=== PATIENT | male | born 1955 | race Caucasian/White ===

== ENCOUNTER 2017-09-20 09:38 | Emergency (ER) | payer OTHER ==
[~2017-09-20] VITALS: Ht 162.6 cm; Wt 74.8 kg
[~2017-09-20 09:38] MED LIST: Augmentin 875-1 EACH PO; Bactrim Ds Tab1 EACH PO; CEPH500 PO; DIPH25 PO; FAMO40 PO; Keflex500 MG PO; MINO100 PO; MUPI2TC TOP; Norco 5-325 Ta1 EACH PO; SULTRIDS PO
[2017-09-20] MEDS ORDERED: Naprosyn500 MG PO (10:10)
[2017-09-20] MEDS ORDERED: Cleocin HCl300 MG PO (10:10)
== END 2017-09-20 10:25 | disposition home or self-care (01) ==
LOC: ER 09:38
DX: K08.89 Other specified disorders of teeth and supporting structures (principal)
CPT/HCPCS: 99283

== ENCOUNTER 2017-10-02 11:27 | Emergency (ER) | payer OTHER ==
[~2017-10-02] VITALS: Ht 162.6 cm; Wt 74.8 kg
[~2017-10-02 11:27] MED LIST changes: +Cleocin HCl300 MG PO; +Naprosyn500 MG PO
[2017-10-02] MEDS ORDERED: AMOX250CH PO (11:55)
== END 2017-10-02 11:56 | disposition home or self-care (01) ==
LOC: ER 11:27
DX: S50.362A Insect bite (nonvenomous) of left elbow, initial encounter (principal); W57.XXXA Bitten or stung by nonvenomous insect and other nonvenomous arthropods, initial encounter; Z79.2 Long term (current) use of antibiotics
CPT/HCPCS: 99281

== ENCOUNTER 2018-01-28 22:34 | Emergency (ER) | payer OTHER ==
[~2018-01-28] VITALS: Ht 162.6 cm; Wt 74.8 kg
[~2018-01-28 22:34] MED LIST changes: +AMOX250CH PO
[2018-01-29] MEDS ORDERED: CEPH500 PO (02:46)
[2018-01-29] MEDS ORDERED: HYDR1TAB94 PO (02:46)
== END 2018-01-29 03:12 | disposition home or self-care (01) ==
LOC: ER 22:34
DX: L03.115 Cellulitis of right lower limb (principal)
CPT/HCPCS: 99283

== ENCOUNTER 2018-02-01 14:46 | Emergency (ER) | payer OTHER ==
[~2018-02-01] VITALS: Ht 162.6 cm; Wt 74.8 kg
[~2018-02-01 14:46] MED LIST changes: +HYDR1TAB94 PO
[2018-02-01 15:50] LABS: BASOPHILS ABSOLUTE AUTO 0.02 K/mm3 (0.00-0.23); BASOPHILS PERCENT AUTO 0 % (0-2); EOSINOPHILS ABSOLUTE AUTO 0.12 K/mm3 (0.00-0.68); EOSINOPHILS PERCENT AUTO 2 % (0-6); Hematocrit 37.4 % (37.0-53.0); IMMATURE GRAN ABSOLUTE AUTO 0.03 K/mm3 (0.00-0.10); IMMATURE GRAN PERCENT AUTO 1 % (0-1); LYMPHOCYTES ABSOLUTE AUTO 1.32 K/mm3 (0.84-5.20); LYMPHOCYTES PERCENT AUTO 20 % (21-46); MONOCYTES ABSOLUTE AUTO 0.69 K/mm3 (0.16-1.47); MONOCYTES PERCENT AUTO 10 % (4-13); Mean Corpuscular HGB 27.5 pg (26.0-34.0); Mean Corpuscular HGB Conc 32.1 g/dL (31.5-36.5); Mean Corpuscular Volume 86 fL (80-100); NEUTROPHILS ABSOLUTE AUTO 4.43 K/mm3 (1.96-9.15); NEUTROPHILS PERCENT AUTO 67 % (41-73); Platelet Count 244 K/mm3 (150-400); RDW Coefficient Variation 12.7 % (11.7-14.2); RDW Standard Deviation 39.2 fL (35.1-46.3); Red Blood Cell Count 4.37 M/mm3 (4.30-5.90); White Blood Cell Count 6.61 K/mm3 (4.00-11.30)
[2018-02-01 16:11] LABS: Alanine Aminotransfer (ALT/SGP 16 U/L (12-78); Albumin, Blood 2.8 g/dL (3.4-5.0); Albumin/Globulin Ratio 0.6 (0.8-1.8); Alk Phos 77 U/L (50-136); Anion Gap 7 mmol/L (6-16); Aspartate Aminotrans (AST/SGOT 15 U/L (12-37); Bilirubin, Total 0.2 mg/dL (0.1-1.0); Blood Urea Nitrogen 13 mg/dL (8-24); Bun/Creatinine Ratio 12.6 (12.0-20.0); CO2, Blood 29 mmol/L (21-32); Calcium, Blood 8.6 mg/dL (8.5-10.1); Chloride, Blood 101 mmol/L (98-108); Creatinine, Blood 1.03 mg/dL (0.60-1.20); Globulin, Blood 4.9 g/dL (2.2-4.0); Glomerular Filtration Rate >60 (60-); Glucose, Blood 124 mg/dL (70-99); Potassium, Blood 3.9 mmol/L (3.5-5.5); Sodium, Blood 137 mmol/L (136-145); Total Protein, Blood 7.7 g/dL (6.4-8.2)
[2018-02-01] MEDS ORDERED: Bactrim Ds Tab1 EACH PO (16:17)
== END 2018-02-01 16:27 | disposition home or self-care (01) ==
LOC: ER 14:46
PROVIDERS: Physician Assistant
DX: L03.115 Cellulitis of right lower limb (principal)
CPT/HCPCS: 80053; 85025; 96365; 99283

== ENCOUNTER 2018-10-26 00:06 | Observation (INO) | payer OTHER ==
[~2018-10-26] VITALS: Ht 162.6 cm; Wt 76.8 kg
[2018-10-26 00:25] LABS: Calcium, Ionized (POC) 1.18 mmol/L (1.10-1.46); Chloride (POC) 97 mmol/L (98-108); Creatinine (POC) 1.4 mg/dL (0.8-1.3); Glucose (ISTAT POC) 131 mg/dL (70-99); Hemoglobin (POC) 9.5 g/dL (13.5-17.5); Potassium (POC) 4.1 mmol/L (3.5-5.5); Sodium (POC) 139 mmol/L (135-148); Total CO2 (POC) 27 mmol/L (21-32)
[2018-10-26 00:37] LABS: BASOPHILS ABSOLUTE AUTO 0.05 K/mm3 (0.00-0.23); BASOPHILS PERCENT AUTO 1 % (0-2); EOSINOPHILS ABSOLUTE AUTO 0.05 K/mm3 (0.00-0.68); EOSINOPHILS PERCENT AUTO 1 % (0-6); Hemoglobin 9.7 g/dL (13.5-17.5); IMMATURE GRAN ABSOLUTE AUTO 0.05 K/mm3 (0.00-0.10); IMMATURE GRAN PERCENT AUTO 1 % (0-1); LYMPHOCYTES ABSOLUTE AUTO 4.05 K/mm3 (0.84-5.20); LYMPHOCYTES PERCENT AUTO 40 % (21-46); MONOCYTES ABSOLUTE AUTO 1.04 K/mm3 (0.16-1.47); MONOCYTES PERCENT AUTO 10 % (4-13); Mean Corpuscular HGB Conc 31.3 g/dL (31.5-36.5); Mean Platelet Volume 8.9 fL (9.1-12.4); NEUTROPHILS ABSOLUTE AUTO 4.98 K/mm3 (1.96-9.15); NEUTROPHILS PERCENT AUTO 49 % (41-73); Platelet Count 247 K/mm3 (150-400); RDW Coefficient Variation 13.6 % (11.7-14.2); RDW Standard Deviation 44.1 fL (35.1-46.3); Red Blood Cell Count 3.47 M/mm3 (4.30-5.90); White Blood Cell Count 10.22 K/mm3 (4.00-11.30)
[2018-10-26 00:38] LABS: Mean Corpuscular Volume 89 fL (80-100)
[2018-10-26 00:56] LABS: Albumin, Blood 2.9 g/dL (3.4-5.0); Albumin/Globulin Ratio 0.8 (0.8-1.8); Bilirubin, Total 0.3 mg/dL (0.1-1.0); Bun/Creatinine Ratio 48.1 (12.0-20.0); Calcium, Blood 8.7 mg/dL (8.5-10.1); Creatinine, Blood 1.33 mg/dL (0.60-1.20); Globulin, Blood 3.5 g/dL (2.2-4.0); Potassium, Blood 4.2 mmol/L (3.5-5.5); Total Protein, Blood 6.4 g/dL (6.4-8.2)
[2018-10-26 01:11] LABS: International Normalized Ratio 1.03; Prothrombin Time Results 10.9 Sec (9.7-11.5)
[2018-10-26] MEDS ORDERED: ASPI81CH PO (01:28)
[2018-10-26] MEDS ORDERED: Omeprazole20 M1 PO (01:28)
[2018-10-26 01:40] LABS: Percent Saturation 27.5 % (20.0-50.0)
[2018-10-26 02:04] LABS: Base Excess Venous 1.6 mmol/L; Bicarbonate Venous 25.3 mmol/L (24.0-30.0); PCO2 Venous 48.6 mmHg (38-42); PO2 Venous 53.3 mmHg (38-42); pH Blood Venous 7.36 (7.34-7.37)
[2018-10-26 03:35] LABS: U Amphetamine Screen DETECTED; U Barbituate Screen Not Detected; U Benzodiazapine Screen Not Detected; U Buprenorphine Screen Not Detected; U Cannabinoids Screen Not Detected; U Cocaine Screen Not Detected; U Methadone Screen Not Detected; U Methamphetamine Screen DETECTED; U Opiates Screen Not Detected; U Oxycodone Screen Not Detected; U Phencyclidine Screen Not Detected; U Propoxyphene Screen Not Detected
[2018-10-26 05:13] LABS: BASOPHILS ABSOLUTE AUTO 0.04 K/mm3 (0.00-0.23); BASOPHILS PERCENT AUTO 1 % (0-2); EOSINOPHILS ABSOLUTE AUTO 0.01 K/mm3 (0.00-0.68); EOSINOPHILS PERCENT AUTO 0 % (0-6); Hematocrit 32.2 % (37.0-53.0); Hemoglobin 10.3 g/dL (13.5-17.5); IMMATURE GRAN ABSOLUTE AUTO 0.02 K/mm3 (0.00-0.10); IMMATURE GRAN PERCENT AUTO 0 % (0-1); LYMPHOCYTES ABSOLUTE AUTO 1.42 K/mm3 (0.84-5.20); LYMPHOCYTES PERCENT AUTO 18 % (21-46); MONOCYTES ABSOLUTE AUTO 0.56 K/mm3 (0.16-1.47); MONOCYTES PERCENT AUTO 7 % (4-13); Mean Corpuscular HGB 28.7 pg (26.0-34.0); Mean Corpuscular Volume 90 fL (80-100); Mean Platelet Volume 8.7 fL (9.1-12.4); NEUTROPHILS ABSOLUTE AUTO 5.99 K/mm3 (1.96-9.15); NEUTROPHILS PERCENT AUTO 75 % (41-73); Platelet Count 172 K/mm3 (150-400); RDW Coefficient Variation 13.5 % (11.7-14.2); RDW Standard Deviation 44.7 fL (35.1-46.3); Red Blood Cell Count 3.59 M/mm3 (4.30-5.90); White Blood Cell Count 8.04 K/mm3 (4.00-11.30)
--- NOTE | 2018-10-26 07:39 | NUR ---
[id number]: ARRIVED FROM ED VIA GUERNEY, ALERT, ORIENT, ABLE TO MOVE SELF ACROSS TO BED. MONITOR SR, BP PARAMETERS STABLE, IVs PATENT, RBC #1, NS FLUID BOLUS, PROTONIX CON'T GTT INFUSING. DENIES PAIN, NAUSEA, SOB. ADMISS HX COMPLETE, PT DOZING. ABNORMAL LACTIC ACID REPORTED TO DR MOTA, ORDERS RECIEVED. CRYSTALOID MAINT FLUID, SECOND RBC GIVEN. VOIDED QS, NO BM OR EMESIS. VSS, PINK, WARM, PLT TRANSFUSION DEFERRED/ DR MOTA. H/H, LACTIC ACID IMPROVED IN AM. ROCEPHIN IVPB GIVEN OFF SCHED AFTER ASCERTAINED NOT GIVEN IN ED, OBTAINED FROM PHARMACY.
--- NOTE | 2018-10-26 07:45 | NUR ---
RECEIVED REPORT AND ASSUMED CARE OF PATIENT. HE IS RESTING AND STATES, "I HAVEN'T SLEPT THIS WELL IN A LONG TIME." HE IS ON 4 L O2 VIA NC, O2 SAT ARE 100%. DECREASED O2 TO 2LPM AND WILL REASSESS. PT DOES NOT COMPLAIN OF PAIN AT THIS TIME. SOME TENDERNESS IN UPPER QUADS OF ABDOMEN. PT VOIDS IN URINAL AND IS INDEPENDENT AT BASELINE.
--- NOTE | 2018-10-26 09:00 | NUR ---
DR KIM IN TO SEE PATIENT, NO CHANGES AT THIS TIME.
--- NOTE | 2018-10-26 09:51 | NUR ---
REASSESSED O2 SAT, CONTINUES AT 100%, TURNED O2 OFF AND PT STATES HE IS BREATHING FINE.
--- NOTE | 2018-10-26 09:52 | NUR ---
DR. DIAZ IN TO SEE PATIENT, PLAN TO SCOPE AT 1000.
--- NOTE | 2018-10-26 10:16 | NUR ---
UPPER ENDOSCOPY DR. DIAZ AND DAY SURGERY CREW AT BEDSIDE TO PERFORM EGD. DAY SURGERY RN PROVIDED ANESTHESIA WITH PROPOFOL. SEE DR. DIAZ'S NOTE FOR FINDINGS.
--- NOTE | 2018-10-26 10:59 | NUR ---
10/26/18 1059 Atif Huntley PATIENT DETERMINED TO BE ASA APPROPRIATE FOR PROPOFOL SEDATION PRIOR TO START OF PROCEDURE BY DR. Giovanny Gandhi Placed3-LEAD EKG REVIEWED WITH PHYSICIAN PRIOR TO START OF PROCEDURE.History, Chart, Medications and Allergies reviewed before start of procedure.MONITOR INTACT WITH CONTINUOUS PULSE OXIMETRY AND INTERMITTENT BP.O2 VIA N/C INTACT THROUGHOUT SEDATION/PROCEDURE. PROCEDURE DONE IN ICU 4
--- NOTE | 2018-10-26 14:14 | NUR ---
DR DIAZ SPOKE WITH PATIENT ABOUT THE SCOPE RESULTS. HE RECOMMENDED THAT HE SEE DR. OCHOA WITHIN A MONTH OF TAKING DAILY MEDICATIONS TO CONTROL THE ACID REFLUX. WENT OVER THE PHOTOS OF THE SCOPE AND EXPLAINED THE ULCERATIONS. PT STATED HE UNDERSTOOD INSTRUCTIONS.
--- NOTE | 2018-10-26 19:18 | NUR ---
PT WAS VERY SLEEPY AND RESTFUL THROUGHOUT THE SHIFT. PT O2SAT >90% ON ROOM AIR. VITALS ARE STABLE. PT HAD SCOPE TODAY AND MET WITH DR DIAZ THIS AFTERNOON. PT DIET HAS BEEN ADVANCED, HE IS USING URINAL AND IS SBA AT THIS TIME. WILL CONTINUE TO MONITOR AND GIVE REPORT TO AALIYAH RN.
[2018-10-27 03:46] LABS: BASOPHILS ABSOLUTE AUTO 0.03 K/mm3 (0.00-0.23); BASOPHILS PERCENT AUTO 0 % (0-2); EOSINOPHILS ABSOLUTE AUTO 0.23 K/mm3 (0.00-0.68); EOSINOPHILS PERCENT AUTO 2 % (0-6); Hematocrit 30.7 % (37.0-53.0); Hemoglobin 10.2 g/dL (13.5-17.5); IMMATURE GRAN ABSOLUTE AUTO 0.04 K/mm3 (0.00-0.10); IMMATURE GRAN PERCENT AUTO 0 % (0-1); LYMPHOCYTES ABSOLUTE AUTO 2.63 K/mm3 (0.84-5.20); LYMPHOCYTES PERCENT AUTO 28 % (21-46); MONOCYTES ABSOLUTE AUTO 0.77 K/mm3 (0.16-1.47); MONOCYTES PERCENT AUTO 8 % (4-13); Mean Corpuscular HGB 28.6 pg (26.0-34.0); Mean Corpuscular HGB Conc 33.2 g/dL (31.5-36.5); Mean Platelet Volume 8.6 fL (9.1-12.4); NEUTROPHILS ABSOLUTE AUTO 5.75 K/mm3 (1.96-9.15); NEUTROPHILS PERCENT AUTO 61 % (41-73); Platelet Count 179 K/mm3 (150-400); RDW Coefficient Variation 14.1 % (11.7-14.2); Red Blood Cell Count 3.57 M/mm3 (4.30-5.90); White Blood Cell Count 9.45 K/mm3 (4.00-11.30)
[2018-10-27 03:49] LABS: Mean Corpuscular Volume 86 fL (80-100)
[2018-10-27 04:07] LABS: Alanine Aminotransfer (ALT/SGP 15 U/L (12-78); Albumin, Blood 2.7 g/dL (3.4-5.0); Albumin/Globulin Ratio 0.9 (0.8-1.8); Alk Phos 48 U/L (50-136); Anion Gap 5 mmol/L (6-16); Aspartate Aminotrans (AST/SGOT 19 U/L (12-37); Bilirubin, Total 0.3 mg/dL (0.1-1.0); Blood Urea Nitrogen 24 mg/dL (8-24); Bun/Creatinine Ratio 25.3 (12.0-20.0); CO2, Blood 27 mmol/L (21-32); Chloride, Blood 110 mmol/L (98-108); Creatinine, Blood 0.95 mg/dL (0.60-1.20); Globulin, Blood 3.1 g/dL (2.2-4.0); Glomerular Filtration Rate >60 (60-); Glucose, Blood 99 mg/dL (70-99); Percent Saturation 24.6 % (20.0-50.0); Potassium, Blood 4.1 mmol/L (3.5-5.5); Sodium, Blood 142 mmol/L (136-145); Total Protein, Blood 5.8 g/dL (6.4-8.2)
--- NOTE | 2018-10-27 08:00 | NUR ---
ATE BREAKFAST AND NOW WANTS TO SLEEP A LITTLE LONGER. NO COMPS AND HOPES TO GO HOME TODAY. LUNGS CLEAR BRE. BACK TO SLEEP ALMOST IMMEDIATELY.
--- NOTE | 2018-10-27 08:18 | NUR ---
[id number]: RESTING COMFORTABLY, SLEEPING AT INTEVALS. DENIES EPIGASTRIC OR ABDOMINAL DISTRESS, DANGLING, UP TO BSC W/OUT DIZZINESS. NO STOOLS OR EMESIS. UNEVENTFULL NIGHT, SLEPT AT INTERVALS, TOAST & JUICE IN A.M.
[2018-10-27] MEDS ORDERED: OMEPRAZOLE20 MG (09:29)
[2018-10-27] MEDS ORDERED: ABAT250V (09:29)
[2018-10-27] MEDS ORDERED: PANT40 PO ×2 (09:31→09:33)
--- NOTE | 2018-10-27 11:16 | NUR ---
PATIENT TAKEN BY WHEELCHAIR WITH MOM AFTER DISCHARGE INSTRUCTIONS.
== END 2018-10-27 11:15 | disposition home or self-care (01) ==
LOC: ER 00:06 → ICUW 00:07 → ICUE 00:07 → ICUW 00:07 → ICUE 01:21 → ENPENDDIS 10-27 09:56 → ICUE 10-27 11:15
PROVIDERS: Emergency Medicine; Internal Medicine; Internal Medicine Gastroenterology; Physician Assistant; ADMIT Hospitalist
PROC: 0DJ08ZZ Inspection of Upper Intestinal Tract, Via Natural or Artificial Opening Endoscopic (ICD-10-PCS; principal; 2018-10-26 09:30)
DX: K22.70 Barrett's esophagus without dysplasia (principal); K21.0 Gastro-esophageal reflux disease with esophagitis; K44.9 Diaphragmatic hernia without obstruction or gangrene; R57.8 Other shock; I95.9 Hypotension, unspecified; D62 Acute posthemorrhagic anemia; F15.10 Other stimulant abuse, uncomplicated; E87.2 Acidosis; D35.00 Benign neoplasm of unspecified adrenal gland; Z79.899 Other long term (current) drug therapy; R91.1 Solitary pulmonary nodule; Z87.891 Personal history of nicotine dependence
CPT/HCPCS: 36415; 36430; 71045; 80047; 80053; 82728; 82803; 83540; 83550; 83605; 85014; 85025; 85610; 86850; 86900; 86901; 86923; 93005; 93010; 96361; 96374; 96375; 99285-25; C9113; G0378; J0696; J1430; J2250; J2405; J2765; J3010; J7030; J7120; P9016

== ENCOUNTER 2019-04-15 05:55 | Observation (INO) | payer OTHER ==
[~2019-04-15] VITALS: Ht 162.6 cm; Wt 69.2 kg
[~2019-04-15 05:55] MED LIST changes: +ABAT250V; +ASPI81CH PO; +OMEPRAZOLE20 MG; +Omeprazole20 M1 PO; +PANT40 PO
--- NOTE | 2019-04-15 06:48 | NUR ---
Ambulatory in Day Surgery History, Chart, Medications and Allergies reviewed before start of procedure.Patient confirms NPO status and agrees with scheduled surgery. Patient reports completing Chlorhexadine shower X2 prior to admission to hospital.Surgical site prepped with 2% Chlorhexidine cloth wipe.
--- NOTE | 2019-04-15 16:15 | NUR ---
SHIFT SUMMARY S/P LAP FUNDOPLICATION TODAY. POST OP VSS. PT REPORTS SHOULDER SORENESS, BUT DENIES INCISONAL PAIN. X5 LAP SITES TO ABD ARE CDI. PT TO REMAIN NPO UNTIL 1800 AND THEN WILL OFFER SIPS OF CLEARS PT TOLERATES. PT HAS DENIED N/V. IVF INFUSING PER ORDERS. PT ORIENTED TO CALL LIGHT AND CALL LIGHT WITHIN REACH.
[2019-04-16 05:16] LABS: BASOPHILS ABSOLUTE AUTO 0.01 K/mm3 (0.00-0.23); BASOPHILS PERCENT AUTO 0 % (0-2); EOSINOPHILS PERCENT AUTO 0 % (0-6); Hematocrit 39.5 % (37.0-53.0); Hemoglobin 12.6 g/dL (13.5-17.5); IMMATURE GRAN ABSOLUTE AUTO 0.04 K/mm3 (0.00-0.10); IMMATURE GRAN PERCENT AUTO 0 % (0-1); LYMPHOCYTES ABSOLUTE AUTO 1.42 K/mm3 (0.84-5.20); LYMPHOCYTES PERCENT AUTO 13 % (21-46); MONOCYTES ABSOLUTE AUTO 0.98 K/mm3 (0.16-1.47); MONOCYTES PERCENT AUTO 9 % (4-13); Mean Corpuscular HGB 28.3 pg (26.0-34.0); Mean Corpuscular HGB Conc 31.9 g/dL (31.5-36.5); Mean Corpuscular Volume 89 fL (80-100); Mean Platelet Volume 8.8 fL (9.1-12.4); NEUTROPHILS ABSOLUTE AUTO 8.44 K/mm3 (1.96-9.15); NEUTROPHILS PERCENT AUTO 78 % (41-73); Platelet Count 254 K/mm3 (150-400); RDW Coefficient Variation 14.1 % (11.7-14.2); RDW Standard Deviation 45.7 fL (35.1-46.3); Red Blood Cell Count 4.46 M/mm3 (4.30-5.90); White Blood Cell Count 10.89 K/mm3 (4.00-11.30)
--- NOTE | 2019-04-16 05:16 | NUR ---
SHIFT SUMMARY PT A&O X4. PT POD#1 FUNDOPLICATION; LAP SITES CDI, EDGES APPROXIMATED, DRY. ABD SOFT; PT DENIES NAUSEA. POPCICLES, SIPS OF WATER AND ICE CHIPS ONLY PER ORDERS. VSS; NO ACUTE CHANGES. PT DECLINED PAIN MEDICATIONS. K-PAD TO SHOULDERS FOR PAIN. SCD'S TO BLE'S. PT INDEPENDENT IN ROOM. CALL LIGHT IN REACH; PT DEMONSTRATES USE. WCTM UNTIL REPORT TO DAY SHIFT RN.
[2019-04-16 05:33] LABS: Anion Gap 4 mmol/L (6-16); Blood Urea Nitrogen 16 mg/dL (8-24); Bun/Creatinine Ratio 16.8 (12.0-20.0); CO2, Blood 29 mmol/L (21-32); Chloride, Blood 104 mmol/L (98-108); Creatinine, Blood 0.96 mg/dL (0.60-1.20); Glomerular Filtration Rate >60 (60-); Glucose, Blood 98 mg/dL (70-99); Potassium, Blood 4.3 mmol/L (3.5-5.5); Sodium, Blood 137 mmol/L (136-145)
--- NOTE | 2019-04-16 07:42 | NUR ---
dr don by to see pt ok to adv to full liq pt reports severe sore throat but otherwise ok did not sleep well because of it
--- NOTE | 2019-04-16 08:18 | NUR ---
PO PAIN MEDS GIVEN MORE FOR SORE THROAT VS ABD PAIN OR ESOPHAGEAL PAIN ALSO GAVE PT CEPACOL LOZENGES TO KEEP AT BEDSIDE YOGURT AND ENSURE ALSO GIVEN
--- NOTE | 2019-04-16 11:24 | NUR ---
pt watching tv stated he felt full after eating still no nausea stated that the pain meds and the cepacol really helped still 12/25 for his sore throat
--- NOTE | 2019-04-16 12:07 | NUR ---
pt eating lunch
[2019-04-16] MEDS ORDERED: PROM25 PO (17:34)
[2019-04-16] MEDS ORDERED: HYDR1TAB94 PO (17:34)
[2019-04-16] MEDS ORDERED: ONDA4ODT MM (17:36)
--- NOTE | 2019-04-16 18:10 | NUR ---
dr don by to see pt rx given to family earlier to fill ok to discharge home raquel dinner no acute changes
--- NOTE | 2019-04-16 18:16 | NUR ---
wc escort to car with his mom also reviewed instructions with her
== END 2019-04-16 18:18 | disposition home or self-care (01) ==
LOC: ORSCMMR 05:55 → ORD 07:30 → ORSCMMR 11:36 → SURS 11:36
PROVIDERS: ADMIT Surgery
PROC: 0DV44ZZ Restriction of Esophagogastric Junction, Percutaneous Endoscopic Approach (ICD-10-PCS; principal; 2019-04-15 07:30)
DX: K44.9 Diaphragmatic hernia without obstruction or gangrene (principal); K22.70 Barrett's esophagus without dysplasia; K21.9 Gastro-esophageal reflux disease without esophagitis
CPT/HCPCS: 36415; 80048; 85025; 86850; 86900; 86901; 96361; 96372; 96375; A9270-GY; C9113; G0378; J0690; J1100; J1650; J1885; J2270; J2370; J2405; J2704; J3010; J7120

== ENCOUNTER 2019-08-22 06:46 | Emergency (ER) | payer OTHER ==
[~2019-08-22] VITALS: Ht 180.3 cm; Wt 68.0 kg
[~2019-08-22 06:46] MED LIST changes: +ONDA4ODT MM; +PROM25 PO
[2019-08-22 07:46] LABS: BASOPHILS ABSOLUTE AUTO 0.05 K/mm3 (0.00-0.23); BASOPHILS PERCENT AUTO 1 % (0-2); EOSINOPHILS ABSOLUTE AUTO 0.06 K/mm3 (0.00-0.68); EOSINOPHILS PERCENT AUTO 1 % (0-6); Hematocrit 45.3 % (37.0-53.0); Hemoglobin 14.4 g/dL (13.5-17.5); IMMATURE GRAN ABSOLUTE AUTO 0.02 K/mm3 (0.00-0.10); IMMATURE GRAN PERCENT AUTO 0 % (0-1); LYMPHOCYTES ABSOLUTE AUTO 1.89 K/mm3 (0.84-5.20); LYMPHOCYTES PERCENT AUTO 25 % (21-46); MONOCYTES ABSOLUTE AUTO 0.55 K/mm3 (0.16-1.47); MONOCYTES PERCENT AUTO 7 % (4-13); Mean Corpuscular HGB 27.9 pg (26.0-34.0); Mean Corpuscular HGB Conc 31.8 g/dL (31.5-36.5); Mean Corpuscular Volume 88 fL (80-100); Mean Platelet Volume 7.9 fL (9.1-12.4); NEUTROPHILS ABSOLUTE AUTO 5.03 K/mm3 (1.96-9.15); NEUTROPHILS PERCENT AUTO 66 % (41-73); Platelet Count 246 K/mm3 (150-400); RDW Coefficient Variation 13.2 % (11.7-14.2); RDW Standard Deviation 42.7 fL (35.1-46.3); Red Blood Cell Count 5.16 M/mm3 (4.30-5.90)
[2019-08-22 08:09] LABS: Alanine Aminotransfer (ALT/SGP 31 U/L (12-78); Alk Phos 78 U/L (50-136); Anion Gap 6 mmol/L (6-16); Aspartate Aminotrans (AST/SGOT 22 U/L (12-37); Bilirubin, Total 0.4 mg/dL (0.1-1.0); Blood Urea Nitrogen 15 mg/dL (8-24); Bun/Creatinine Ratio 16.6 (12.0-20.0); C-REACTIVE PROTEIN, EXT RANGE <0.290 mg/dL (0.000-0.300); CO2, Blood 29 mmol/L (21-32); Calcium, Blood 8.9 mg/dL (8.5-10.1); Chloride, Blood 104 mmol/L (98-108); Creatinine, Blood 0.91 mg/dL (0.60-1.20); Globulin, Blood 4.1 g/dL (2.2-4.0); Glomerular Filtration Rate >60 (60-); Glucose, Blood 89 mg/dL (70-99); Sodium, Blood 139 mmol/L (136-145); Total Protein, Blood 8.1 g/dL (6.4-8.2)
[2019-08-22] MEDS ORDERED: Percocet 5-3251 EACH PO (09:12)
== END 2019-08-22 09:58 | disposition home or self-care (01) ==
LOC: ER 06:46
PROVIDERS: Emergency Medicine
DX: M54.31 Sciatica, right side (principal); L02.415 Cutaneous abscess of right lower limb
CPT/HCPCS: 36415; 73502; 80053; 85025; 86140; 99283-25

== ENCOUNTER 2019-08-26 09:31 | Emergency (ER) | payer OTHER ==
[~2019-08-26] VITALS: Ht 162.6 cm; Wt 69.4 kg
[~2019-08-26 09:31] MED LIST changes: +Percocet 5-3251 EACH PO
== END 2019-08-26 11:32 | disposition home or self-care (01) ==
LOC: ER 09:31
DX: M54.31 Sciatica, right side (principal); Z87.891 Personal history of nicotine dependence
CPT/HCPCS: 93926; 96374; 96375; 99283-25; J1170; J1885

== ENCOUNTER 2020-06-27 12:32 | Emergency (ER) | payer OTHER ==
[~2020-06-27] VITALS: Ht 162.6 cm; Wt 65.8 kg
[~2020-06-27 12:32] MED LIST changes: +IBUP400 PO; +MINO50 PO
[2020-06-27] MEDS ORDERED: HYDR1TAB94 PO (14:12)
== END 2020-06-27 14:26 | disposition home or self-care (01) ==
LOC: ER 12:32
DX: S20.211A Contusion of right front wall of thorax, initial encounter (principal); M25.511 Pain in right shoulder; Y04.0XXA Assault by unarmed brawl or fight, initial encounter
CPT/HCPCS: 73030; 99283-25

== ENCOUNTER 2021-12-29 18:52 | Emergency (ER) | payer OTHER ==
[~2021-12-29] VITALS: Ht 162.6 cm; Wt 72.6 kg
== END 2021-12-29 21:55 | disposition home or self-care (01) ==
LOC: ER 18:52
DX: M25.462 Effusion, left knee (principal); Z53.21 Procedure and treatment not carried out due to patient leaving prior to being seen by health care provider
CPT/HCPCS: 73030; 73562-LT; 99282

== ENCOUNTER → 2022-05-01 | Outpatient (CLI) | payer OTHER | END | disposition home or self-care (01) | LOC: LAB 17:43 → LAB SHORT 17:43 | DX: M70.21 Olecranon bursitis, right elbow (principal) | CPT/HCPCS: 87070; 87075; 87077; 87147; 87186; 87205 ==